=== PATIENT | male | born 1995 | race Caucasian/White ===

== ENCOUNTER 2018-11-04 00:06 | Emergency (ER) | payer BC ==
[2018-11-04] MEDS ORDERED: diphenhydrAMINE 50 MG/ML VIAL IVP ONE (00:15)
[2018-11-04] MEDS ORDERED: FAMOTIDINE 20 MG TAB PO ONE (00:15)
[2018-11-04] MEDS ORDERED: methylPREDNIS SUCC 125 MG/2ML IVP ONE (00:15)
[2018-11-04 01:00] VITALS: BP 120/73
[2018-11-04] MEDS ORDERED: PRED20TA6 PO (01:08)
--- NOTE | 2018-11-04 01:09 | ER Report ---
History and Physical Time Seen By MD: 00:12 HPI/ROS CHIEF COMPLAINT: Allergic reaction/anaphylaxis HISTORY OF PRESENT ILLNESS: 23-year-old male presents ambulatory to the ER complaining of an allergic reaction. 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 He ended up using his epinephrine pen and was brought in by a couple of friends. He appears grossly pale. He notes some throat swelling sensation. His vital signs are stable. His pulse ox is normal. He is able to speak in full sentences. Patient notes some hives and itching around his neck, chest and arms. REVIEW OF SYSTEMS: Respiratory: No cough, no dyspnea. Cardiovascular: No chest pain, no palpitations. Gastrointestinal: No vomiting, no abdominal pain. Musculoskeletal: No back pain. Allergies: Coded Allergies: koo (Verified Allergy, Severe, anaphlaxis, 11/04/18) peanut (Verified Allergy, Severe, ANAPHLAXIS, 11/04/18) coconut (Verified Allergy, Intermediate, "FEEL SICK", 11/04/18) Home Meds Active Scripts Prednisone (PREDNISONE) 20 Mg Tablet, 20 MG PO QDAY for prevention of allergic reactio, #6 2 By mouth daily for 2 days then 1 by mouth daily 2 days Prov:TYLER FAIR Tulio DO 11/04/18 Hx Substance Use Disorder: No Hx Alcohol Use: No Constitutional Vital Sign - Last 24 Hours 11/04/18 11/04/18 11/04/18 11/04/18 00:10 00:12 00:21 00:30 Temp 98.2 Pulse 102 105 Resp 16 B/P (MAP) 151/113 (126) 151/113 139/103 (115) Pulse Ox 91 90 O2 Delivery Room Air 11/04/18 11/04/18 11/04/18 11/04/18 00:36 00:51 01:00 01:06 Pulse 93 B/P (MAP) 120/73 (89) Pulse Ox 92 92 84 Physical Exam Vital signs stable, afebrile, pulse ox normal General Appearance: The patient is alert, has no immediate need for airway protection and no current signs of toxicity. Slightly pale appearing, skin warm and dry HEENT: Pupils equal and round no injection. TMs normal, oropharynx without edema, mild erythema Respiratory: Chest is non tender, lungs are clear to auscultation. No wheezing or rails Cardiac: regular rate and rhythm Gastrointestinal: Abdomen is soft and non tender, no masses, bowel sounds normal. Musculoskeletal: Neck: Neck is supple and non tender. Extremities have full range of motion and are non tender. Skin: No rashes or lesions. DIFFERENTIAL DIAGNOSIS: After history and physical exam differential diagnosis was considered for allergic reaction, anaphylaxis, food poisoning, urticaria Medical Decision Making ED Course/Re-evaluation Clinical Indication for ER IV: IV Access ED Course Patient was admitted to an examination room. H&P was done. The differential diagnoses was considered. On clinical examination. Patient with obvious allergic reaction. He administered his EpiPen. He is feeling better on arrival. His vitals are stable. He points of some throat swelling sensation. He has tachycardia. Patient's treated with IV Solu-Medrol 125 mg and Benadryl 50 mg IV. He is also given Pepcid 20 g by mouth. He is observed for approximately one hour without any worsening. He is discharged home with a prednisone taper of 40 mg 2 days, 202 days. He is advised to continue Benadryl. He was offered a refill on his EpiPen. He states he has refills available. Patient advised to return to the ER for any worsening. Otherwise follow-up with primary care Decision to Disposition Date: November 04, 2018 Decision to Disposition Time: 01:02 Depart Departure Latest Vital Signs Vital Signs Date Time Temp Pulse Resp B/P (MAP) Pulse Ox O2 Delivery O2 Flow Rate FiO2 11/04/18 01:06 84 11/04/18 01:00 120/73 (89) 11/04/18 00:51 93 11/04/18 00:12 98.2 16 Room Air Impression: Primary Impression: Allergic reaction Additional Impression: Anaphylaxis Condition: Improved Disposition: HOME OR SELF-CARE New Scripts Prednisone (PREDNISONE) 20 Mg Tablet 20 MG PO QDAY for prevention of allergic reactio, #6 2 By mouth daily for 2 days then 1 by mouth daily 2 days Prov: TYLER FAIR DO 11/04/18 Patient Instructions: Anaphylaxis (ED), General Allergic Reaction (ED) Additional Instructions: Continue taking Benadryl 25 mg 1-2 tablets 3 times a day as needed for itching or hives Return to the ER for any worsening Problem Qualifiers Primary Impression: Allergic reaction Encounter type: initial encounter Qualified Codes: T78.40XA - Allergy, unspecified, initial encounter Additional Impression: Anaphylaxis Encounter type: initial encounter Qualified Codes: T78.2XXA - Anaphylactic shock, unspecified, initial encounter TYLER FAIR DO November 04, 2018 01:09
== END 2018-11-04 01:12 | disposition home or self-care (01) ==
LOC: ER 00:17
DX: T78.40XA Allergy, unspecified, initial encounter (principal); T78.2XXA Anaphylactic shock, unspecified, initial encounter; R00.0 Tachycardia, unspecified
CPT/HCPCS: 96374; 96375; 99284; J1200; J2930